=== PATIENT | male | born 1985 | race Two or more races ===

== ENCOUNTER 2019-02-04 14:00 | Outpatient (CLI) | payer OTHER | END 2019-02-04 23:59 | disposition home or self-care (01) | LOC: WOU 14:00 | PROVIDERS: ATTEND Surgery | DX: K61.0 Anal abscess (principal); R10.2 Pelvic and perineal pain | CPT/HCPCS: 10061; 87070; 87077; 87186; A6407; J3490; 10060 ==

== ENCOUNTER 2019-02-06 14:30 | Outpatient (CLI) | payer OTHER | END 2019-02-06 23:59 | disposition home or self-care (01) | LOC: WOU 14:30 | PROVIDERS: ATTEND Surgery | DX: K61.0 Anal abscess (principal); K62.89 Other specified diseases of anus and rectum | CPT/HCPCS: 99214; A6253; A6407 ×2; G0463 ==

== ENCOUNTER 2019-02-11 14:15 | Outpatient (CLI) | payer OTHER | END 2019-02-11 23:59 | disposition home or self-care (01) | LOC: WOU 14:15 | PROVIDERS: ATTEND Surgery | DX: T81.89XD Other complications of procedures, not elsewhere classified, subsequent encounter (principal); R10.2 Pelvic and perineal pain | CPT/HCPCS: 11042; A6407 ==

== ENCOUNTER 2019-02-25 14:45 | Outpatient (CLI) | payer OTHER | END 2019-02-25 23:59 | disposition home or self-care (01) | LOC: WOU 14:45 | PROVIDERS: ATTEND Surgery | DX: T81.89XA Other complications of procedures, not elsewhere classified, initial encounter (principal); R10.2 Pelvic and perineal pain | CPT/HCPCS: 11042; A6407 ==

== ENCOUNTER 2019-03-11 14:02 | Outpatient (CLI) | payer OTHER | END 2019-03-11 23:59 | disposition home or self-care (01) | LOC: WOU 14:02 | PROVIDERS: ATTEND Surgery | DX: T81.89XA Other complications of procedures, not elsewhere classified, initial encounter (principal); R10.2 Pelvic and perineal pain | CPT/HCPCS: 11042; A6407 ==

== ENCOUNTER 2019-06-10 14:00 | Outpatient (CLI) | payer OTHER | END 2019-06-10 23:59 | disposition home or self-care (01) | LOC: WOU 14:00 | PROVIDERS: ATTEND Surgery | DX: K61.0 Anal abscess (principal); K62.6 Ulcer of anus and rectum | CPT/HCPCS: G0463 ==